=== PATIENT | male | born 1985 | race Two or more races ===

== ENCOUNTER 2017-12-18 00:28 | Emergency (ER) | payer SELFPAY ==
[~2017-12-18] VITALS: Ht 162.6 cm; Wt 72.6 kg
--- NOTE | 2017-12-18 00:28 | NUR ---
GRACIA C/O POSSIBLE EXPOSURE TO CARBON MONOXIDE REFILLING GAS TANKS. AT [facility]OP AT 11PM "SOB, N/V, TIRED". NO PAIN AT THIS TIME. CAN SMELL CARBON MONOXIDE ON PATIENT. PT ADMITS TO SMOKING WEED TODAY. A/JOSE R4 VSS NAD. WILL CONTINUE TO MONITOR FOR ANY CHANGES. Addendum: 12/18/17 at 0215 by BRIAN SMELL SMOKE ON PATIENT. NOT CARBON MONOXIDE. CORRECTION
--- NOTE | 2017-12-18 01:08 | NUR ---
RT CALLED FOR ABG
[2017-12-18 01:23] LABS: ABG BASE EXCESS 2.5 mmol/L; ABG PCO2 43.7 mmHg (35.0-45.0); ABG PH 7.417 (7.350-7.450); AaDO2 12.4 mmHg; COHb 3.2 % (0.5-1.5); MetHb 0.6 % (0.0-1.5); O2Hb 92.4 % (94.0-97.0); SITE, ABG Right Radial; VENT MODE, BG Room Air
[2017-12-18] MEDS ORDERED: ONDANSETRON HCL/PF 4 MG/2 ML VIAL IM ONE (01:30)
[2017-12-18] MEDS ORDERED: ONDANSETRON HCL/PF 4 MG/2 ML VIAL ONE (01:54)
--- NOTE | 2017-12-18 02:08 | NUR ---
BREATHING TX IN PROGRESS
--- NOTE | 2017-12-18 03:00 | NUR ---
RT AT BEDSIDE FOR ABG #2
[2017-12-18 03:13] LABS: ABG OXYGEN SATURATION 98.9 % (92.0-98.5); ABG PCO2 34.3 mmHg (35.0-45.0); ABG PH 7.479 (7.350-7.450); ABG PO2 258.9 mmHg (75.0-100.0); AaDO2 419.8 mmHg; COHb 1.2 % (0.5-1.5); MetHb 0.6 % (0.0-1.5); O2Hb 97.1 % (94.0-97.0); SITE, ABG Left Radial; VENT MODE, BG NRB
[2017-12-18 03:27] VITALS: BP 153/72
== END 2017-12-18 03:28 | disposition home or self-care (01) ==
LOC: ER 00:29
DX: T58.91XA Toxic effect of carbon monoxide from unspecified source, accidental (unintentional), initial encounter (principal); Y35 Legal intervention; Y93.89 Activity, other specified; Y92.89 Other specified places as the place of occurrence of the external cause; Y99.0 Civilian activity done for income or pay
CPT/HCPCS: 36600; 82803-TC; A4606; J2405; Z7610